=== PATIENT | male | born 1950 | race African-American/Black ===

== ENCOUNTER 2020-03-01 19:23 | Emergency (ER) | payer MEDICARE, OTHER ==
[~2020-03-01] VITALS: Ht 172.7 cm; Wt 73.0 kg
[2020-03-01] MEDS ORDERED: TETANUS, DIPHTHERIA, PERTUSSIS VAC/PF 0.5ML (>7YR OLD) IM ONE (21:00)
[2020-03-01] MEDS ORDERED: ACETAMINOPHEN 500MG TABLET PO ONE (23:00)
[2020-03-01 23:15] VITALS: BP 122/72
== END 2020-03-01 23:15 | disposition home or self-care (01) ==
LOC: ER 19:23
DX: S00.83XA Contusion of other part of head, initial encounter (principal); M54.2 Cervicalgia; W10.8XXA Fall (on) (from) other stairs and steps, initial encounter; Y93.01 Activity, walking, marching and hiking; Y92.89 Other specified places as the place of occurrence of the external cause
CPT/HCPCS: 71045; 90471; 90715; 93005; 99285

== ENCOUNTER 2021-01-30 14:16 | Inpatient (IN) | payer MEDICARE, MEDICAID ==
[~2021-01-30] VITALS: Ht 174 cm; Wt 71.8 kg
[2021-01-30] VITALS (16 sets, daily range): BP systolic 67–154; BP diastolic 39–107
[2021-01-30] MEDS ORDERED: ACETAMINOPHEN 650MG SUPP PR ONE (14:45)
[2021-01-30] MEDS ORDERED: SODIUM CHLORIDE 0.9% 1000ML BAG (SEPSIS BOLUS) IV ONE (14:45)
[2021-01-30] MEDS ORDERED: CEFTRIAXONE 1 G PREMIX 50 ML IV ONE (14:45)
[2021-01-30] MEDS ORDERED: DEXT 5%/0.9% NACL 1,000 ML IV ONE (14:45)
[2021-01-30 15:06] LABS: BASOPHILS % 0.3 % (0.0-2.0); HEMATOCRIT. 40.6 % (42.0-52.0); HEMOGLOBIN. 13.2 g/dL (14.0-18.0); LYMPHOCYTES % 8.7 % (20.0-50.0); MEAN CORPUSCULAR HEMOGLOBIN 29.8 pg (28.0-32.0); MEAN CORPUSCULAR VOLUME 92.2 fL (80.0-94.0); MEAN PLATELET VOLUME 8.4 fl (7.4-10.4); MONOCYTES % 7.1 % (2.0-8.0); NEUTROPHILS % 83.9 % (40.0-76.0); PLATELET 392 x1000/uL (130-400); RED BLOOD CELL COUNT 4.41 mill/uL (4.7-6.1); RED CELL DISTRIBUTION WIDTH 14.1 % (11.6-14.6)
[2021-01-30] MEDS ORDERED: SODIUM CHLORIDE 0.9% 1,000 ML IV ONE (15:45)
[2021-01-30 16:13] LABS: CHLORIDE 119 mEq/L (98-107)
[2021-01-30 16:17] LABS: ETHANOL BLOOD < 10 mg/dL
[2021-01-30 16:18] LABS: INR 1.2; PROTHROMBIN TIME 12.3 sec (9.6-11.0)
[2021-01-30 16:37] LABS: CREATINE KINASE 5079 IU/L (39-308)
[2021-01-30] MEDS ORDERED: FUROSEMIDE 100MG/10ML VIAL IV STA (16:38)
[2021-01-30] MEDS ORDERED: DEXTROSE 50% WATER 50ML SYRINGE IV ONE (16:45)
[2021-01-30] MEDS ORDERED: ALBUTEROL (0.083%) 2.5MG/3ML NEB HHN ONE (16:45)
[2021-01-30] MEDS ORDERED: CALCIUM CHLORIDE 1GM/10ML SYR IV ONE (16:45)
[2021-01-30] MEDS ORDERED: INSULIN REGULAR (HUMULIN R) 300UNITS/3ML VIAL IV ONE (16:45)
[2021-01-30] MEDS ORDERED: SODIUM BICARBONATE 8.4% 1 MEQ/ML 50ML SYR IV ONE (16:45)
[2021-01-30] MEDS ORDERED: SODIUM POLYSTYRENE SULFONATE 15 G/60 ML BOT PO ONE (16:45)
[2021-01-30] MEDS ORDERED: FENTANYL CITRATE/PF 50MCG/ML 2ML VIAL IV ONE (18:30)
[2021-01-30 20:11] LABS: HEPATITIS B SURFACE ANTIGEN NEGATIVE
[2021-01-30] MEDS ORDERED: HEPARIN SODIUM 1,000 UNIT/1ML VIAL IV ONE (21:30)
[2021-01-30] MEDS ORDERED: ACETAMINOPHEN 325MG TABLET PO PRN (22:00)
[2021-01-30] MEDS ORDERED: IPRATROPIUM/ALBUTEROL 0.5-3(2.5)MG/3ML NEB HHN PRN (22:00)
[2021-01-30] MEDS ORDERED: ONDANSETRON HCL 4MG/2ML INJ IV PRN (22:00)
[2021-01-30] MEDS ORDERED: PHENYLEPHRINE 100 MG in DEXT 5% WATER 240 ML IV PRN (22:00)
[2021-01-31] VITALS (60 sets, daily range): BP systolic 89–156; BP diastolic 64–102
[2021-01-31] MEDS: PANTOPRAZOLE SODIUM 40 MG/VIAL IV SCH ×2 (00:53→08:14)
[2021-01-31] MEDS: SODIUM BICARBONATE 50 MEQ in DEXTROSE 5% WATER 1,000 ML IV SCH ×3 (00:54→22:42)
[2021-01-31] MEDS: LINEZOLID 600MG TABLET PO SCH ×3 (00:54→08:32)
[2021-01-31] MEDS: MEROPENEM 500 MG in SODIUM CHLORIDE 0.9% 50 ML IV SCH ×2 (00:54→21:14)
[2021-01-31 03:07] LABS: HEMATOCRIT. 40.7 % (42.0-52.0); HEMOGLOBIN. 13.2 g/dL (14.0-18.0); MEAN CORPUSCULAR HEMOGLOBIN 29.9 pg (28.0-32.0); MEAN CORPUSCULAR VOLUME 91.9 fL (80.0-94.0); MEAN PLATELET VOLUME 7.9 fl (7.4-10.4); PLATELET 224 x1000/uL (130-400); RED BLOOD CELL COUNT 4.43 mill/uL (4.7-6.1); RED CELL DISTRIBUTION WIDTH 14.5 % (11.6-14.6)
[2021-01-31] MEDS ORDERED: CHOL-36 PO (03:08)
[2021-01-31] MEDS ORDERED: SIMV-43 MT (03:08)
[2021-01-31] MEDS ORDERED: METF-414 PO (03:08)
[2021-01-31] MEDS ORDERED: CALC-26 PO (03:08)
[2021-01-31] MEDS ORDERED: TRAZ-251 PO (03:08)
[2021-01-31] MEDS ORDERED: SODIUM POLYSTYRENE SULFONATE 15 G/60 ML BOT PO SCH (06:30)
[2021-01-31] MEDS: BLOOD SUGAR DIAGNOSTIC STRIP TEST SCH ×4 (07:45→21:21)
[2021-01-31] MEDS: INSULIN LISPRO 100 UNITS/ML SUBCUT SCH ×4 (08:00→21:00)
[2021-01-31] MEDS: HEPARIN 5000 UNITS/ML VIAL SUBCUT SCH ×2 (08:15→21:14)
[2021-01-31 09:20] LABS: PLATELET ESTIMATE NORMAL
[2021-01-31] MEDS ORDERED: VANCOMYCIN 1250MG in DEXTROSE 5% WATER 250ML IV SCH (10:00)
[2021-01-31 10:27] LABS: BASOPHILS % 0.1 % (0.0-2.0); EOSINOPHILS % 0.1 % (0.0-5.0); HEMATOCRIT. 37.1 % (42.0-52.0); LYMPHOCYTES % 9.9 % (20.0-50.0); MEAN CORPUSCULAR HEMOGLOBIN 29.8 pg (28.0-32.0); MEAN PLATELET VOLUME 8.4 fl (7.4-10.4); MONOCYTES % 5.6 % (2.0-8.0); NEUTROPHILS % 84.3 % (40.0-76.0); PLATELET 214 x1000/uL (130-400); RED BLOOD CELL COUNT 4.04 mill/uL (4.7-6.1); RED CELL DISTRIBUTION WIDTH 14.5 % (11.6-14.6)
[2021-01-31 11:29] LABS: CLARITY URINE CLEAR (CLEAR); COLOR URINE YELLOW (YELLOW); KETONES URINE TRACE (NEGATIVE); LEUKOCYTE ESTERASE URINE NEGATIVE (NEGATIVE); NITRITE URINE NEGATIVE (NEGATIVE); OCCULT BLOOD URINE 3+ (NEGATIVE); PH URINE 5.5 (4.5-8.0); PROTEIN URINE 1+ (NEGATIVE); SPECIFIC GRAVITY URINE 1.013 (1.005-1.030); UROBILINOGEN URINE 0.2 E.U./dL (0.2-1.0)
[2021-01-31 11:47] LABS: *AMPHETAMINES SCREEN URINE PRESUMTIVE POSITIVE (NEGATIVE); *BARBITURATES SCREEN URINE NEGATIVE (NEGATIVE); *BENZODIAZEPINES SCREEN URINE NEGATIVE (NEGATIVE); *COCAINE SCREEN URINE NEGATIVE (NEGATIVE)
[2021-01-31 11:48] LABS: CANNABINOID URINE SCREEN NEGATIVE (NEGATIVE); METHADONE URINE SCREEN NEGATIVE (NEGATIVE); OPIATES URINE SCREEN NEGATIVE (NEGATIVE); PHENCYCLIDINE URINE SCREEN NEGATIVE (NEGATIVE)
[2021-01-31] MEDS ORDERED: NA PHOS,M-B/NA PHOS,DI-BA ENEMA 118ML PR NR ×2 (17:15→21:00)
[2021-02-01] VITALS (75 sets, daily range): BP systolic 85–125; BP diastolic 50–87
[2021-02-01] MEDS: BLOOD SUGAR DIAGNOSTIC STRIP TEST SCH ×4 (05:44→21:37)
[2021-02-01] MEDS: DEXTROSE 50% WATER 50ML SYRINGE IV PRN ×2 (05:47→12:05)
[2021-02-01] MEDS: SODIUM BICARBONATE 50 MEQ in DEXTROSE 5% WATER 1,000 ML IV SCH ×3 (06:12→22:44)
[2021-02-01] MEDS: INSULIN LISPRO 100 UNITS/ML SUBCUT SCH ×4 (06:39→21:00)
[2021-02-01] MEDS ORDERED: DIATR MEGLU/DIATRIZOATE SOLN 120ML ONE (08:17)
[2021-02-01 08:55] LABS: HEMATOCRIT. 38.1 % (42.0-52.0); HEMOGLOBIN. 12.4 g/dL (14.0-18.0); MEAN CORPUSCULAR VOLUME 92.3 fL (80.0-94.0); PLATELET 193 x1000/uL (130-400); RED BLOOD CELL COUNT 4.13 mill/uL (4.7-6.1); RED CELL DISTRIBUTION WIDTH 14.3 % (11.6-14.6)
[2021-02-01] MEDS: HEPARIN 5000 UNITS/ML VIAL SUBCUT SCH ×2 (09:00→21:39)
[2021-02-01 10:05] LABS: PLATELET ESTIMATE NORMAL
[2021-02-01 11:28] LABS: INR 1.1; PARTIAL THROMBOPLASTIN TIME 30.8 sec (23.4-31.0); PROTHROMBIN TIME 12.1 sec (9.6-11.0)
[2021-02-01] MEDS: PANTOPRAZOLE SODIUM 40 MG/VIAL IV SCH (11:36)
[2021-02-01] MEDS ORDERED: MIDAZOLAM HCL 5 MG/5 ML VIAL ONE (13:31)
[2021-02-01] MEDS ORDERED: FENTANYL CITRATE/PF 50MCG/ML 2ML VIAL ONE (13:31)
[2021-02-01] MEDS ORDERED: DIAZEPAM 5 MG/ML 2ML CPJ ONE (13:32)
[2021-02-01] MEDS ORDERED: MIDAZOLAM HCL 5 MG/5 ML VIAL IV PRN (14:05)
[2021-02-01 16:31] LABS: PROSTRATE SPECIFIC AG TOTAL 8.88 ng/mL (0.0-4.0)
[2021-02-01] MEDS: MEROPENEM 500 MG in SODIUM CHLORIDE 0.9% 50 ML IV SCH (21:39)
[2021-02-02] VITALS (61 sets, daily range): BP systolic 90–136; BP diastolic 48–78
[2021-02-02 05:16] LABS: BASOPHILS % 0.2 % (0.0-2.0); EOSINOPHILS % 0.5 % (0.0-5.0); HEMATOCRIT. 33.6 % (42.0-52.0); HEMOGLOBIN. 11.4 g/dL (14.0-18.0); LYMPHOCYTES % 14.4 % (20.0-50.0); MEAN CORPUSCULAR HEMOGLOBIN 30.6 pg (28.0-32.0); MEAN PLATELET VOLUME 9.1 fl (7.4-10.4); NEUTROPHILS % 79.9 % (40.0-76.0); PLATELET 192 x1000/uL (130-400); RED BLOOD CELL COUNT 3.73 mill/uL (4.7-6.1); RED CELL DISTRIBUTION WIDTH 14.2 % (11.6-14.6)
[2021-02-02 05:28] LABS: PHOSPHORUS 5.8 mg/dL (2.5-4.9)
[2021-02-02] MEDS: BLOOD SUGAR DIAGNOSTIC STRIP TEST SCH ×4 (05:34→21:12)
[2021-02-02] MEDS: INSULIN LISPRO 100 UNITS/ML SUBCUT SCH ×4 (07:00→21:00)
[2021-02-02] MEDS: PANTOPRAZOLE SODIUM 40 MG/VIAL IV SCH (09:56)
[2021-02-02] MEDS: HEPARIN 5000 UNITS/ML VIAL SUBCUT SCH ×2 (09:56→21:21)
[2021-02-02] MEDS: DEXT 5%/0.45% NACL 1000ML 1,000 ML IV SCH (09:57)
[2021-02-02] MEDS ORDERED: VANCOMYCIN 750 MG PREMIX 150 ML IV NR (12:00)
[2021-02-02] MEDS: DEXTROSE 50% WATER 50ML SYRINGE IV PRN (12:04)
[2021-02-02] MEDS: MEROPENEM 500 MG in SODIUM CHLORIDE 0.9% 50 ML IV SCH (21:19)
[2021-02-03] VITALS (21 sets, daily range): BP systolic 88–163; BP diastolic 46–101
[2021-02-03] MEDS: DEXT 5%/0.45% NACL 1000ML 1,000 ML IV SCH (06:21)
[2021-02-03] MEDS: BLOOD SUGAR DIAGNOSTIC STRIP TEST SCH ×4 (06:27→20:50)
[2021-02-03] MEDS: INSULIN LISPRO 100 UNITS/ML SUBCUT SCH ×4 (07:06→20:51)
[2021-02-03 07:08] LABS: BASOPHILS % 0.4 % (0.0-2.0); HEMATOCRIT. 34.6 % (42.0-52.0); HEMOGLOBIN. 11.4 g/dL (14.0-18.0); LYMPHOCYTES % 19.7 % (20.0-50.0); MEAN CORPUSCULAR HEMOGLOBIN 29.8 pg (28.0-32.0); MEAN CORPUSCULAR VOLUME 90.6 fL (80.0-94.0); MEAN PLATELET VOLUME 9.2 fl (7.4-10.4); MONOCYTES % 10.8 % (2.0-8.0); NEUTROPHILS % 65.1 % (40.0-76.0); PLATELET 190 x1000/uL (130-400); RED BLOOD CELL COUNT 3.82 mill/uL (4.7-6.1); RED CELL DISTRIBUTION WIDTH 14.1 % (11.6-14.6)
[2021-02-03] MEDS ORDERED: LACTULOSE 20G/30ML UDC PO NR (08:15)
[2021-02-03] MEDS ORDERED: BISACODYL 10MG SUPP PR NR (08:15)
[2021-02-03] MEDS: PANTOPRAZOLE SODIUM 40 MG/VIAL IV SCH (08:36)
[2021-02-03] MEDS: HEPARIN 5000 UNITS/ML VIAL SUBCUT SCH ×2 (08:36→20:44)
[2021-02-03] MEDS: MEROPENEM 500 MG in SODIUM CHLORIDE 0.9% 50 ML IV SCH (20:56)
[2021-02-04] VITALS (11 sets, daily range): BP systolic 121–157; BP diastolic 71–105
[2021-02-04 04:58] LABS: PHOSPHORUS 4.7 mg/dL (2.5-4.9)
[2021-02-04 05:30] LABS: HEMOGLOBIN. 10.9 g/dL (14.0-18.0); MEAN CORPUSCULAR VOLUME 90.4 fL (80.0-94.0); MEAN PLATELET VOLUME 9.4 fl (7.4-10.4); PLATELET 186 x1000/uL (130-400); RED BLOOD CELL COUNT 3.65 mill/uL (4.7-6.1)
[2021-02-04] MEDS: DEXT 5%/0.45% NACL 1000ML 1,000 ML IV SCH (06:12)
[2021-02-04] MEDS: BLOOD SUGAR DIAGNOSTIC STRIP TEST SCH ×4 (06:19→20:36)
[2021-02-04] MEDS: INSULIN LISPRO 100 UNITS/ML SUBCUT SCH ×4 (07:20→20:36)
[2021-02-04] MEDS ORDERED: POTASSIUM CHLORIDE 20MEQ TABLET SR PO SCH (08:00)
[2021-02-04] MEDS: PANTOPRAZOLE SODIUM 40 MG/VIAL IV SCH (10:20)
[2021-02-04] MEDS: HEPARIN 5000 UNITS/ML VIAL SUBCUT SCH ×2 (10:20→20:36)
[2021-02-04 14:45] LABS: NUCLEATED RED BLOOD CELLS 1 /100 WBC
[2021-02-04 14:46] LABS: PLATELET ESTIMATE NORMAL
[2021-02-04] MEDS ORDERED: VANCOMYCIN 500 MG PREMIX 100 ML IV NR (17:00)
[2021-02-05] VITALS (11 sets, daily range): BP systolic 111–145; BP diastolic 69–117
[2021-02-05] MEDS: INSULIN LISPRO 100 UNITS/ML SUBCUT SCH ×4 (06:47→21:00)
[2021-02-05] MEDS: BLOOD SUGAR DIAGNOSTIC STRIP TEST SCH ×4 (06:47→21:57)
[2021-02-05 08:44] LABS: PHOSPHORUS 2.8 mg/dL (2.5-4.9)
[2021-02-05 09:10] LABS: HEMATOCRIT. 33.6 % (42.0-52.0); HEMOGLOBIN. 11.4 g/dL (14.0-18.0); MEAN CORPUSCULAR HEMOGLOBIN 30.7 pg (28.0-32.0); MEAN CORPUSCULAR VOLUME 90.5 fL (80.0-94.0); MEAN PLATELET VOLUME 8.9 fl (7.4-10.4); PLATELET 186 x1000/uL (130-400); RED BLOOD CELL COUNT 3.71 mill/uL (4.7-6.1)
[2021-02-05] MEDS: PANTOPRAZOLE SODIUM 40 MG/VIAL IV SCH (11:50)
[2021-02-05] MEDS: HEPARIN 5000 UNITS/ML VIAL SUBCUT SCH ×2 (11:52→21:57)
[2021-02-05 14:28] LABS: PLATELET ESTIMATE NORMAL
[2021-02-06] VITALS: BP 134/75
[2021-02-06 04:00] VITALS: BP 127/75
[2021-02-06] MEDS: BLOOD SUGAR DIAGNOSTIC STRIP TEST SCH ×4 (06:58→20:23)
[2021-02-06 07:44] LABS: BASOPHILS % 0.3 % (0.0-2.0); EOSINOPHILS % 2.7 % (0.0-5.0); HEMATOCRIT. 31.7 % (42.0-52.0); HEMOGLOBIN. 10.4 g/dL (14.0-18.0); LYMPHOCYTES % 18.2 % (20.0-50.0); MEAN CORPUSCULAR HEMOGLOBIN 29.6 pg (28.0-32.0); MEAN CORPUSCULAR VOLUME 90.2 fL (80.0-94.0); MEAN PLATELET VOLUME 8.7 fl (7.4-10.4); MONOCYTES % 13.2 % (2.0-8.0); NEUTROPHILS % 65.6 % (40.0-76.0); PLATELET 221 x1000/uL (130-400); RED BLOOD CELL COUNT 3.51 mill/uL (4.7-6.1); RED CELL DISTRIBUTION WIDTH 14.4 % (11.6-14.6)
[2021-02-06] MEDS: INSULIN LISPRO 100 UNITS/ML SUBCUT SCH ×4 (07:50→20:24)
[2021-02-06 08:04] VITALS: BP 116/75
[2021-02-06] MEDS: PANTOPRAZOLE SODIUM 40 MG/VIAL IV SCH (09:13)
[2021-02-06] MEDS: HEPARIN 5000 UNITS/ML VIAL SUBCUT SCH ×2 (09:14→20:23)
[2021-02-06 11:46] VITALS: BP 112/79
[2021-02-06 16:07] VITALS: BP 139/83
[2021-02-06] MEDS ORDERED: DIPHENOXYLATE/ATROPINE 2.5/0.025MG TABLET PO PRN (17:15)
[2021-02-06 20:00] VITALS: BP 137/86
[2021-02-07] VITALS: BP 118/76
[2021-02-07 04:00] VITALS: BP 116/77
[2021-02-07 04:50] LABS: BASOPHILS % 0.3 % (0.0-2.0); EOSINOPHILS % 1.4 % (0.0-5.0); HEMATOCRIT. 29.4 % (42.0-52.0); HEMOGLOBIN. 9.9 g/dL (14.0-18.0); LYMPHOCYTES % 14.7 % (20.0-50.0); MEAN CORPUSCULAR HEMOGLOBIN 29.8 pg (28.0-32.0); MEAN CORPUSCULAR VOLUME 88.8 fL (80.0-94.0); MEAN PLATELET VOLUME 8.6 fl (7.4-10.4); MONOCYTES % 9.4 % (2.0-8.0); NEUTROPHILS % 74.2 % (40.0-76.0); PLATELET 271 x1000/uL (130-400); RED BLOOD CELL COUNT 3.31 mill/uL (4.7-6.1); RED CELL DISTRIBUTION WIDTH 14.1 % (11.6-14.6)
[2021-02-07 05:04] LABS: CHLORIDE 102 mEq/L (98-107)
[2021-02-07 05:16] LABS: CREATINE KINASE 27 IU/L (39-308)
[2021-02-07] MEDS: BLOOD SUGAR DIAGNOSTIC STRIP TEST SCH ×4 (06:32→21:45)
[2021-02-07] MEDS: INSULIN LISPRO 100 UNITS/ML SUBCUT SCH ×4 (07:50→21:00)
[2021-02-07 08:00] VITALS: BP 133/81
[2021-02-07] MEDS: PANTOPRAZOLE SODIUM 40 MG/VIAL IV SCH (09:40)
[2021-02-07] MEDS: HEPARIN 5000 UNITS/ML VIAL SUBCUT SCH ×2 (09:41→21:00)
[2021-02-07 12:00] VITALS: BP 119/80
[2021-02-07 16:00] VITALS: BP 136/85
[2021-02-07] MEDS ORDERED: CEFEPIME 2,000 MG in DEXT 5% WATER 100 ML IV SCH (16:30)
[2021-02-07] MEDS ORDERED: VANCOMYCIN 1500MG in DEXTROSE 5% WATER 250ML IV NR (18:30)
[2021-02-07] MEDS: CEFEPIME 1,000 MG in DEXTROSE 5% WATER 50 ML IV SCH (18:34)
[2021-02-07 20:00] VITALS: BP 139/83
[2021-02-07] MEDS ORDERED: HEPARIN SODIUM 1,000 UNIT/1ML VIAL IV NR (21:30)
[2021-02-08] VITALS: BP 156/81
[2021-02-08 04:00] VITALS: BP 98/68
[2021-02-08] MEDS: BLOOD SUGAR DIAGNOSTIC STRIP TEST SCH ×4 (07:34→21:28)
[2021-02-08] MEDS: INSULIN LISPRO 100 UNITS/ML SUBCUT SCH ×4 (07:35→21:00)
[2021-02-08 07:38] LABS: HEMOGLOBIN. 10.3 g/dL (14.0-18.0); MEAN CORPUSCULAR VOLUME 90.2 fL (80.0-94.0); PLATELET 283 x1000/uL (130-400); RED BLOOD CELL COUNT 3.44 mill/uL (4.7-6.1); RED CELL DISTRIBUTION WIDTH 14.3 % (11.6-14.6)
[2021-02-08 08:07] LABS: HIV 1 ABS Positive (Negative); HIV 2 ABS Negative (Negative); HIV SCREEN 4G Reactive (Non Reactive); INTERPRETATION HIV-1 Positive (.)
[2021-02-08 08:09] VITALS: BP 135/71
[2021-02-08] MEDS: HEPARIN 5000 UNITS/ML VIAL SUBCUT SCH ×2 (09:00→21:39)
[2021-02-08] MEDS ORDERED: DIATR MEGLU/DIATRIZOATE SOLN 120ML ONE (09:29)
[2021-02-08] MEDS: PANTOPRAZOLE SODIUM 40 MG/VIAL IV SCH (10:04)
[2021-02-08 11:55] LABS: PROTHROMBIN TIME 11.2 sec (9.6-11.0)
[2021-02-08 12:00] VITALS: BP 100/59
[2021-02-08 16:11] VITALS: BP 108/59
[2021-02-08] MEDS: CEFEPIME 1,000 MG in DEXTROSE 5% WATER 50 ML IV SCH (17:48)
[2021-02-08 18:01] LABS: BASOPHILS % 0.2 % (0.0-2.0); EOSINOPHILS % 0.7 % (0.0-5.0); HEMATOCRIT. 29.5 % (42.0-52.0); HEMOGLOBIN. 9.8 g/dL (14.0-18.0); LYMPHOCYTES % 12.4 % (20.0-50.0); MEAN CORPUSCULAR HEMOGLOBIN 29.7 pg (28.0-32.0); MEAN CORPUSCULAR VOLUME 89.4 fL (80.0-94.0); MEAN PLATELET VOLUME 7.8 fl (7.4-10.4); MONOCYTES % 9.7 % (2.0-8.0); PLATELET 290 x1000/uL (130-400); RED CELL DISTRIBUTION WIDTH 14.1 % (11.6-14.6)
[2021-02-08 18:11] LABS: CHLORIDE 101 mEq/L (98-107)
[2021-02-08 19:17] LABS: PLATELET ESTIMATE NORMAL
[2021-02-08 20:00] VITALS: BP 112/72
[2021-02-08] MEDS: METRONIDAZOLE 500 MG PREMIX 100 ML IV SCH (21:39)
[2021-02-09] VITALS: BP 115/69
[2021-02-09 04:00] VITALS: BP 106/51
[2021-02-09 06:17] LABS: ABSOLUTE BASOPHILS 0.2 x10E3/uL (0.0-0.2); ABSOLUTE EOSINOPHILS 0.4 x10E3/uL (0.0-0.4); ABSOLUTE LYMPHOCYTES 2.8 x10E3/uL (0.7-3.1); ABSOLUTE MONOCYTES 1.4 x10E3/uL (0.1-0.9); ABSOLUTE NEUTROPHILS 12.6 x10E3/uL (1.4-7.0); BASOPHILS 1 % (Not Estab.); HEMATOLOGY COMMENT Note: (.); HEMOGLOBIN 9.9 g/dL (13.0-17.7); LYMPHOCYTES 16 % (Not Estab.); MEAN CORPUSCULAR HEMOGLOBIN 29.7 pg (26.6-33.0); MEAN CORPUSCULAR HGB CONC. 31.9 g/dL (31.5-35.7); MEAN CORPUSCULAR VOLUME 93 fL (79-97); MONOCYTES 8 % (Not Estab.); NEUTROPHILS 72 % (Not Estab.); PLATELETS 296 x10E3/uL (150-450); RBC 3.33 x10E6/uL (4.14-5.80); RED CELL DISTRIBUTION WIDTH 12.7 % (11.6-15.4); WBC 17.5 x10E3/uL (3.4-10.8)
[2021-02-09] MEDS: METRONIDAZOLE 500 MG PREMIX 100 ML IV SCH ×3 (07:08→21:41)
[2021-02-09 07:29] LABS: BASOPHILS % 0.6 % (0.0-2.0); EOSINOPHILS % 1.5 % (0.0-5.0); HEMATOCRIT. 28.5 % (42.0-52.0); HEMOGLOBIN. 9.3 g/dL (14.0-18.0); LYMPHOCYTES % 17.6 % (20.0-50.0); MEAN CORPUSCULAR HEMOGLOBIN 29.4 pg (28.0-32.0); MEAN CORPUSCULAR VOLUME 89.8 fL (80.0-94.0); MEAN PLATELET VOLUME 8.1 fl (7.4-10.4); MONOCYTES % 13.6 % (2.0-8.0); NEUTROPHILS % 66.7 % (40.0-76.0); PLATELET 310 x1000/uL (130-400); RED BLOOD CELL COUNT 3.18 mill/uL (4.7-6.1); RED CELL DISTRIBUTION WIDTH 14.1 % (11.6-14.6)
[2021-02-09] MEDS: BLOOD SUGAR DIAGNOSTIC STRIP TEST SCH ×4 (07:49→21:29)
[2021-02-09] MEDS: INSULIN LISPRO 100 UNITS/ML SUBCUT SCH ×4 (07:49→21:00)
[2021-02-09 08:00] VITALS: BP 109/69
[2021-02-09] MEDS: HEPARIN 5000 UNITS/ML VIAL SUBCUT SCH ×2 (09:00→21:30)
[2021-02-09 09:07] LABS: % CD 3 POS. LYMPHOCYTES 65.4 % (57.5-86.2); % CD 4 POS. LYMPHOCYTES 34.9 % (30.8-58.5); % CD 8 POS. LYMPH 33.1 % (12.0-35.5); ABSOLUTE CD 3 1831 /uL (622-2402); ABSOLUTE CD 4 HELPER 977 /uL (359-1519); ABSOLUTE CD 8 SUPPRESSOR 927 /uL (109-897); CD4/CD8 RATIO 1.05 (0.92-3.72)
[2021-02-09] MEDS: PANTOPRAZOLE SODIUM 40 MG/VIAL IV SCH (09:20)
[2021-02-09 12:00] VITALS: BP 108/64
[2021-02-09] MEDS ORDERED: VANCOMYCIN 750 MG PREMIX 150 ML IV SCH (13:00)
[2021-02-09 16:00] VITALS: BP 134/63
[2021-02-09] MEDS: CEFEPIME 1,000 MG in DEXTROSE 5% WATER 50 ML IV SCH (18:22)
[2021-02-09 20:00] VITALS: BP 147/86
[2021-02-09 20:30] LABS: HEPATITIS B SURFACE AB > 1000.0 mIU/mL
[2021-02-09 20:41] LABS: HEPATITIS B SURFACE ANTIGEN NEGATIVE
[2021-02-10] VITALS: BP 125/73
[2021-02-10 04:00] VITALS: BP 136/82
[2021-02-10] MEDS: METRONIDAZOLE 500 MG PREMIX 100 ML IV SCH ×2 (05:22→13:17)
[2021-02-10] MEDS: BLOOD SUGAR DIAGNOSTIC STRIP TEST SCH ×4 (06:03→21:42)
[2021-02-10 06:33] LABS: HEMATOCRIT. 27.5 % (42.0-52.0); HEMOGLOBIN. 9.3 g/dL (14.0-18.0); MEAN CORPUSCULAR HEMOGLOBIN 30.4 pg (28.0-32.0); MEAN PLATELET VOLUME 7.7 fl (7.4-10.4); PLATELET 321 x1000/uL (130-400); RED BLOOD CELL COUNT 3.06 mill/uL (4.7-6.1); RED CELL DISTRIBUTION WIDTH 14.1 % (11.6-14.6)
[2021-02-10] MEDS: INSULIN LISPRO 100 UNITS/ML SUBCUT SCH ×4 (07:50→21:00)
[2021-02-10 08:00] VITALS: BP 106/55
[2021-02-10] MEDS: PANTOPRAZOLE SODIUM 40 MG/VIAL IV SCH (09:14)
[2021-02-10] MEDS: HEPARIN 5000 UNITS/ML VIAL SUBCUT SCH ×2 (09:15→21:43)
[2021-02-10 12:00] VITALS: BP 68/38
[2021-02-10] MEDS: METRONIDAZOLE 500MG TABLET PO SCH ×2 (13:29→22:07)
[2021-02-10 16:00] VITALS: BP 102/67
[2021-02-10 17:27] LABS: PLATELET ESTIMATE NORMAL
[2021-02-10] MEDS: CEFEPIME 1,000 MG in DEXTROSE 5% WATER 50 ML IV SCH (18:01)
[2021-02-10] MEDS ORDERED: LACTULOSE 20G/30ML UDC PO SCH (18:24)
[2021-02-10 20:00] VITALS: BP 114/68
[2021-02-10] MEDS: LACTULOSE 20G/30ML UDC PO SCH (21:42)
[2021-02-11] VITALS: BP 132/64
[2021-02-11 04:00] VITALS: BP 116/60
[2021-02-11] MEDS: BLOOD SUGAR DIAGNOSTIC STRIP TEST SCH ×4 (06:32→21:25)
[2021-02-11] MEDS: METRONIDAZOLE 500MG TABLET PO SCH ×3 (06:32→21:15)
[2021-02-11] MEDS: INSULIN LISPRO 100 UNITS/ML SUBCUT SCH ×4 (07:50→21:00)
[2021-02-11 07:59] LABS: HEMATOCRIT. 27.7 % (42.0-52.0); HEMOGLOBIN. 9.2 g/dL (14.0-18.0); MEAN CORPUSCULAR HEMOGLOBIN 29.6 pg (28.0-32.0); MEAN CORPUSCULAR VOLUME 89.4 fL (80.0-94.0); MEAN PLATELET VOLUME 7.5 fl (7.4-10.4); PLATELET 355 x1000/uL (130-400); RED CELL DISTRIBUTION WIDTH 14.3 % (11.6-14.6)
[2021-02-11 08:00] VITALS: BP 70/39
[2021-02-11] MEDS: SODIUM CHLORIDE 0.9% 1,000 ML IV SCH ×2 (09:00→21:16)
[2021-02-11] MEDS: LACTULOSE 20G/30ML UDC PO SCH (09:00)
[2021-02-11] MEDS: MIDODRINE HCL 5MG TABLET PO SCH ×3 (09:00→17:00)
[2021-02-11] MEDS: HEPARIN 5000 UNITS/ML VIAL SUBCUT SCH ×2 (09:11→21:16)
[2021-02-11] MEDS: PANTOPRAZOLE SODIUM 40 MG/VIAL IV SCH (09:18)
[2021-02-11 12:00] VITALS: BP 108/60
[2021-02-11] MEDS ORDERED: VANCOMYCIN 1 G PREMIX 200 ML IV SCH (12:00)
[2021-02-11 16:00] VITALS: BP 130/75
[2021-02-11] MEDS: CEFEPIME 1,000 MG in DEXTROSE 5% WATER 50 ML IV SCH (17:46)
[2021-02-11 20:00] VITALS: BP 104/74
[2021-02-12] VITALS: BP 113/62
[2021-02-12 01:53] LABS: PLATELET ESTIMATE NORMAL
[2021-02-12 04:49] LABS: CHLORIDE 109 mEq/L (98-107)
[2021-02-12 05:37] LABS: HEMATOCRIT. 26.2 % (42.0-52.0); HEMOGLOBIN. 8.6 g/dL (14.0-18.0); MEAN CORPUSCULAR HEMOGLOBIN 29.4 pg (28.0-32.0); MEAN CORPUSCULAR VOLUME 90.1 fL (80.0-94.0); MEAN PLATELET VOLUME 7.8 fl (7.4-10.4); PLATELET 335 x1000/uL (130-400); RED BLOOD CELL COUNT 2.91 mill/uL (4.7-6.1); RED CELL DISTRIBUTION WIDTH 14.8 % (11.6-14.6)
[2021-02-12] MEDS: BLOOD SUGAR DIAGNOSTIC STRIP TEST SCH ×4 (06:52→21:00)
[2021-02-12] MEDS: METRONIDAZOLE 500MG TABLET PO SCH ×3 (06:52→21:41)
[2021-02-12] MEDS: INSULIN LISPRO 100 UNITS/ML SUBCUT SCH ×4 (07:50→21:00)
[2021-02-12 08:00] VITALS: BP 131/73
[2021-02-12] MEDS: PANTOPRAZOLE SODIUM 40 MG/VIAL IV SCH (09:00)
[2021-02-12 10:41] LABS: PLATELET ESTIMATE NORMAL
[2021-02-12] MEDS: SODIUM CHLORIDE 0.9% 1,000 ML IV SCH (11:40)
[2021-02-12 12:00] VITALS: BP 128/75
[2021-02-12] MEDS: MIDODRINE HCL 5MG TABLET PO SCH ×3 (12:20→17:00)
[2021-02-12] MEDS: HEPARIN 5000 UNITS/ML VIAL SUBCUT SCH ×2 (12:21→21:41)
[2021-02-12 16:00] VITALS: BP 147/79
[2021-02-12] MEDS: CEFEPIME 1,000 MG in DEXTROSE 5% WATER 50 ML IV SCH (19:05)
[2021-02-12 20:00] VITALS: BP 115/76
[2021-02-13] VITALS: BP 122/71
[2021-02-13] MEDS: SODIUM CHLORIDE 0.9% 1,000 ML IV SCH ×2 (01:00→14:37)
[2021-02-13 04:00] VITALS: BP 117/65
[2021-02-13 04:20] LABS: CHLORIDE 110 mEq/L (98-107)
[2021-02-13 04:21] LABS: HEMATOCRIT. 26.5 % (42.0-52.0); HEMOGLOBIN. 8.9 g/dL (14.0-18.0); MEAN CORPUSCULAR HEMOGLOBIN 30.2 pg (28.0-32.0); MEAN PLATELET VOLUME 7.5 fl (7.4-10.4); PLATELET 388 x1000/uL (130-400); RED BLOOD CELL COUNT 2.94 mill/uL (4.7-6.1); RED CELL DISTRIBUTION WIDTH 14.7 % (11.6-14.6)
[2021-02-13] MEDS: METRONIDAZOLE 500MG TABLET PO SCH ×3 (06:14→21:17)
[2021-02-13] MEDS: BLOOD SUGAR DIAGNOSTIC STRIP TEST SCH ×4 (06:22→21:00)
[2021-02-13] MEDS: INSULIN LISPRO 100 UNITS/ML SUBCUT SCH ×4 (06:22→21:00)
[2021-02-13 08:00] VITALS: BP 123/76
[2021-02-13] MEDS: MIDODRINE HCL 5MG TABLET PO SCH ×3 (09:01→17:40)
[2021-02-13] MEDS: PANTOPRAZOLE SODIUM 40 MG/VIAL IV SCH (09:01)
[2021-02-13] MEDS: HEPARIN 5000 UNITS/ML VIAL SUBCUT SCH ×2 (09:01→21:17)
[2021-02-13 12:00] VITALS: BP 155/86
[2021-02-13 12:41] LABS: NUCLEATED RED BLOOD CELLS 1 /100 WBC; PLATELET ESTIMATE NORMAL
[2021-02-13] MEDS: CEFEPIME 1,000 MG in DEXTROSE 5% WATER 50 ML IV SCH ×2 (14:36→14:38)
[2021-02-13 16:00] VITALS: BP 137/77
[2021-02-13 20:00] VITALS: BP 137/78
[2021-02-14] VITALS: BP 126/73
[2021-02-14] MEDS: SODIUM CHLORIDE 0.9% 1,000 ML IV SCH ×2 (03:40→16:14)
[2021-02-14 04:00] VITALS: BP 115/62
[2021-02-14 04:38] LABS: HEMOGLOBIN. 8.5 g/dL (14.0-18.0); MEAN CORPUSCULAR HEMOGLOBIN 30.5 pg (28.0-32.0); MEAN PLATELET VOLUME 7.4 fl (7.4-10.4); PLATELET 422 x1000/uL (130-400); RED BLOOD CELL COUNT 2.78 mill/uL (4.7-6.1); RED CELL DISTRIBUTION WIDTH 14.7 % (11.6-14.6)
[2021-02-14] MEDS: BLOOD SUGAR DIAGNOSTIC STRIP TEST SCH ×4 (07:20→21:00)
[2021-02-14] MEDS: INSULIN LISPRO 100 UNITS/ML SUBCUT SCH ×4 (07:50→21:14)
[2021-02-14 08:00] VITALS: BP 128/68
[2021-02-14] MEDS: HEPARIN 5000 UNITS/ML VIAL SUBCUT SCH ×2 (09:56→21:17)
[2021-02-14] MEDS: PANTOPRAZOLE SODIUM 40 MG/VIAL IV SCH (10:00)
[2021-02-14] MEDS: MIDODRINE HCL 5MG TABLET PO SCH ×3 (10:00→17:00)
[2021-02-14 12:00] VITALS: BP 140/80
[2021-02-14 13:12] LABS: PLATELET ESTIMATE INCREASED
[2021-02-14 16:00] VITALS: BP 137/89
[2021-02-14 20:00] VITALS: BP 153/80
[2021-02-15] VITALS: BP 124/73
[2021-02-15 04:00] VITALS: BP 113/71
[2021-02-15] MEDS: SODIUM CHLORIDE 0.9% 1,000 ML IV SCH (05:38)
[2021-02-15] MEDS: BLOOD SUGAR DIAGNOSTIC STRIP TEST SCH ×3 (06:23→17:45)
[2021-02-15 07:48] LABS: HEMATOCRIT. 25.8 % (42.0-52.0); HEMOGLOBIN. 8.7 g/dL (14.0-18.0); MEAN CORPUSCULAR HEMOGLOBIN 30.3 pg (28.0-32.0); MEAN CORPUSCULAR VOLUME 90.2 fL (80.0-94.0); MEAN PLATELET VOLUME 7.2 fl (7.4-10.4); PLATELET 463 x1000/uL (130-400); RED BLOOD CELL COUNT 2.86 mill/uL (4.7-6.1); RED CELL DISTRIBUTION WIDTH 14.6 % (11.6-14.6)
[2021-02-15] MEDS: INSULIN LISPRO 100 UNITS/ML SUBCUT SCH ×3 (07:50→17:45)
[2021-02-15 08:00] VITALS: BP 119/60
[2021-02-15] MEDS: MIDODRINE HCL 5MG TABLET PO SCH ×3 (09:00→17:00)
[2021-02-15] MEDS: PANTOPRAZOLE SODIUM 40 MG/VIAL IV SCH (09:09)
[2021-02-15] MEDS: HEPARIN 5000 UNITS/ML VIAL SUBCUT SCH (09:15)
[2021-02-15 12:00] VITALS: BP 118/66
[2021-02-15 16:00] VITALS: BP 153/78
[2021-02-15 16:43] VITALS: BP 153/78
[2021-02-15 19:48] LABS: PLATELET ESTIMATE INCREASED
[2021-02-15] MEDS ORDERED: HEPARIN 5000 UNITS/ML VIAL SUBCUT SCH (21:00)
== END 2021-02-15 19:06 | DRG 720 ==
LOC: ER 14:23 → EDBEDREQ 18:29 → EDBEDREQSVC 18:29 → ENRESERV 19:46 → MICUSO 20:42 → 3WST 02-02 13:16 → 6EST 02-05 21:34
PROVIDERS: ADMIT Internal Medicine; ATTEND Internal Medicine
PROC: 02HV33Z Insertion of Infusion Device into Superior Vena Cava, Percutaneous Approach (ICD-10-PCS; 2021-01-30)
PROC: B548ZZA Ultrasonography of Superior Vena Cava, Guidance (ICD-10-PCS; 2021-01-30)
PROC: 5A1D70Z Performance of Urinary Filtration, Intermittent, Less than 6 Hours Per Day (ICD-10-PCS; 2021-01-30)
PROC: 5A1D70Z Performance of Urinary Filtration, Intermittent, Less than 6 Hours Per Day (ICD-10-PCS; 2021-01-31)
PROC: 5A1D70Z Performance of Urinary Filtration, Intermittent, Less than 6 Hours Per Day (ICD-10-PCS; 2021-02-02)
PROC: 5A1D70Z Performance of Urinary Filtration, Intermittent, Less than 6 Hours Per Day (ICD-10-PCS; 2021-02-04)
PROC: 5A1D70Z Performance of Urinary Filtration, Intermittent, Less than 6 Hours Per Day (ICD-10-PCS; 2021-02-07)
PROC: 0DBN8ZX Excision of Sigmoid Colon, Via Natural or Artificial Opening Endoscopic, Diagnostic (ICD-10-PCS; principal; 2021-02-08)
DX: A41.9 Sepsis, unspecified organism (principal); K55.069 Acute infarction of intestine, part and extent unspecified; R65.21 Severe sepsis with septic shock; G82.50 Quadriplegia, unspecified; E43 Unspecified severe protein-calorie malnutrition; K56.2 Volvulus; G93.41 Metabolic encephalopathy; M62.82 Rhabdomyolysis; E11.22 Type 2 diabetes mellitus with diabetic chronic kidney disease; K56.0 Paralytic ileus; D64.9 Anemia, unspecified; E11.65 Type 2 diabetes mellitus with hyperglycemia; E87.5 Hyperkalemia; N18.9 Chronic kidney disease, unspecified; F17.200 Nicotine dependence, unspecified, uncomplicated; I12.9 Hypertensive chronic kidney disease with stage 1 through stage 4 chronic kidney disease, or unspecified chronic kidney disease; J44.9 Chronic obstructive pulmonary disease, unspecified; K56.41 Fecal impaction; N13.30 Unspecified hydronephrosis; Z86.73 Personal history of transient ischemic attack (TIA), and cerebral infarction without residual deficits; K82.8 Other specified diseases of gallbladder; N40.0 Benign prostatic hyperplasia without lower urinary tract symptoms; R26.9 Unspecified abnormalities of gait and mobility; R47.1 Dysarthria and anarthria; R53.81 Other malaise; N17.9 Acute kidney failure, unspecified; R74.01 Elevation of levels of liver transaminase levels; Z20.822 Contact with and (suspected) exposure to COVID-19; F15.10 Other stimulant abuse, uncomplicated; N32.0 Bladder-neck obstruction; N32.89 Other specified disorders of bladder; R13.10 Dysphagia, unspecified; Z79.84 Long term (current) use of oral hypoglycemic drugs; Z79.899 Other long term (current) drug therapy; Z68.23 Body mass index [BMI] 23.0-23.9, adult
CPT/HCPCS: 36415; 71045; 74018; 74176; 74270; 76700; 76705; 80048; 80053; 80061; 80076; 80202; 80305; 80320; 81003; 82140; 82270; 82378; 82550; 82575; 82962; 83036; 83605; 83735; 83880; 84100; 84132; 84145; 84153; 84443; 84484; 85007; 85025; 85027; 86359; 86360; 86592; 86701; 86702; 86703; 86705; 86706; 86709; 86803; 87015; 87045; 87340; 87389; 87426; 87427; 87449; 87804; 88304; 89055; 92523; 92610; 93005; 93306; 97110; 97162; 97165; 97530; 97535; 99291; A6261; C1893; C9113; J0692; J0696; J1644; J1815; J1940; J2185; J2250; J3010; J3370; J3490; J7030; J7040; J7042; J7060; J7070; Q9963; A4315; G0103; G0480